=== PATIENT | male | born 1990 | race Hispanic/Latino ===

== ENCOUNTER 2022-08-20 18:45 | Emergency (ER) | payer OTHER ==
[~2022-08-20] VITALS: Ht 170.2 cm; Wt 75.7 kg
[2022-08-20 19:15] VITALS: BP 120/71
[2022-08-20] MEDS ORDERED: ACETAMINOPHEN 500 MG TABLET PO ONE (19:30)
[2022-08-20] MEDS ORDERED: LOPE2CAP PO (19:58)
[2022-08-20] MEDS ORDERED: IBUP-2070 PO (19:58)
[2022-08-20] MEDS ORDERED: IBUPROFEN 600 MG TABLET PO ONE (20:00)
[2022-08-20] MEDS ORDERED: LOPERAMIDE HCL 2 MG CAP PO ONE ×2 (20:00→20:01)
[2022-08-20] MEDS ORDERED: IBUPROFEN 600 MG TABLET ONE (20:02)
== END 2022-08-20 20:17 | disposition home or self-care (01) ==
LOC: EDH 18:45
DX: K52.9 Noninfective gastroenteritis and colitis, unspecified (principal); Z20.822 Contact with and (suspected) exposure to COVID-19
CPT/HCPCS: 99283; 87635; 87804 ×2; C9803

== ENCOUNTER 2024-02-06 13:39 | Emergency (ER) | payer BC, OTHER ==
[~2024-02-06] VITALS: Ht 177.8 cm; Wt 81.6 kg
[~2024-02-06 13:39] MED LIST: IBUP-2070 PO; LOPE2CAP PO
[2024-02-06 14:14] LABS: ADD UA MICROSCOPIC YES; APPEARANCE,URINE CLEAR (CLEAR); BILIRUBIN,URINE NEGATIVE (NEGATIVE); COLOR,URINE COLORLESS (YELLOW); GLUCOSE, URINE (UA) NEGATIVE (NEGATIVE); KETONES,URINE NEGATIVE (NEGATIVE); LEUKOCYTE ESTERASE ,URINE NEGATIVE Leu/uL (NEGATIVE); NITRATE,URINE NEGATIVE (NEGATIVE); OCCULT BLOOD,URINE NEGATIVE (NEGATIVE); PROTEIN,URINE NEGATIVE (NEGATIVE); UROBILINOGEN,URINE 0.2 mg/dL (0.2-1.0)
[2024-02-06 14:18] LABS: RBC,URINE 0-1 /HPF (0-1); WBC,URINE 0-1 /HPF (0-1)
[2024-02-06 14:22] LABS: AMPHET/METH SCREEN,URINE NEGATIVE (NEGATIVE); BARBITURATE SCREEN, URINE NEGATIVE (NEGATIVE); BENZODIAZEPINES SCREEN,URINE NEGATIVE (NEGATIVE); CANNABINOID SCREEN,URINE NEGATIVE (NEGATIVE); COCAINE SCREEN,URINE NEGATIVE (NEGATIVE); OPIATE SCREEN,URINE NEGATIVE (NEGATIVE); PHENCYCLIDINE SCREEN,URINE NEGATIVE (NEGATIVE)
[2024-02-06] MEDS: ONDANSETRON 4MG INJ IVP ONE (14:54)
[2024-02-06] MEDS: KETOROLAC 30MG VIAL (30MG/ML) IVP ONE (14:54)
[2024-02-06] MEDS: 0.9%NACL 1000ML 1,000 ML IV ONE (14:54)
[2024-02-06 15:08] LABS: BASOPHILS # (AUTO) 0.03 K/uL (0.00-0.20); BASOPHILS % (AUTO) 0.2 % (0.0-5.0); EOSINOPHILS # (AUTO) 0.18 K/uL (0.00-0.70); EOSINOPHILS % (AUTO) 1.2 % (0.0-8.0); HEMATOCRIT 43.2 % (42-54); IMMATURE GRANULOCYTE ABSOLUTE 0.09 K/uL (0-1); LYMPHOCYTES # (AUTO) 1.8 K/uL (1.0-4.8); MEAN CORPUSCULAR HEMOGLOBIN 32.1 pg (27.0-33.0); MEAN CORPUSCULAR HGB CONC 35.2 g/dL (32.0-36.0); MEAN CORPUSCULAR VOLUME 91.1 fL (79-99); MONOCYTES # (AUTO) 1.1 K/uL (0.1-1.0); MONOCYTES % (AUTO) 7.1 % (3.0-13.0); NEUTROPHILS # (AUTO) 11.7 K/uL (1.8-7.7); NEUTROPHILS % (AUTO) 78.9 % (40.0-77.0); PLATELET COUNT (AUTO) 262 K/uL (130-400); RED BLOOD CELL COUNT(AUTO) 4.74 MIL/uL (4.50-6.20); RED CELL DISTRIBUTION WIDTH 11.8 % (11.0-15.5); WHITE BLOOD COUNT (AUTO) 14.8 K/uL (4.8-10.8)
[2024-02-06 15:22] LABS: CARBON DIOXIDE 31 mmol/L (21-32); CHLORIDE 99 mmol/L (101-111); CREATININE 1.1 mg/dL (0.5-1.3); GLOMERULAR FILTR. RATE CALC 90 mL/min (>90); GLUCOSE,RANDOM 92 mg/dL (70-105); POTASSIUM 3.4 mmol/L (3.5-5.1); SODIUM SERUM 137 mmol/L (136-145); UREA NITROGEN, BLOOD 6 mg/dL (7-18)
[2024-02-06 15:25] LABS: ALANINE AMINOTRANSFERASE 27 U/L (12-78); ALBUMIN 3.9 g/dL (3.5-5.0); ALCOHOL, BLOOD < 3 mg/dL (0-10); ASPARTATE AMINOTRANSFERASE 23 U/L (10-37); BILIRUBIN,TOTAL 0.4 mg/dL (0.2-1.0); CREATINE KINASE, TOTAL 209 U/L (21-232); TOTAL PROTEIN, SERUM 8.2 g/dL (6.0-8.3)
[2024-02-06 15:35] LABS: COVID19 (SARS ANTIGEN RAPID) PRESUMPTIVE NEGATIVE (NEGATIVE)
[2024-02-06 15:36] LABS: INFLUENZA TYPE A Negative For Type A (NEGATIVE); INFLUENZA TYPE B Negative For Type B (NEGATIVE)
[2024-02-06 16:55] VITALS: BP 121/78; PULSE 78; RESP 18; O2SAT 98
[2024-02-06] MEDS ORDERED: ONDA4TAB10 PO (17:02)
== END 2024-02-06 17:10 | disposition home or self-care (01) ==
LOC: EDH 13:39
DX: R07.81 Pleurodynia (principal); M79.18 Myalgia, other site; R50.9 Fever, unspecified; Z20.822 Contact with and (suspected) exposure to COVID-19
CPT/HCPCS: 99284; 96374; 71045; 96361; 96375; 87426; 82550; 80053; 80305; 83690; 85025; 85378; 87040 ×2; 87880; 87804 ×2; 83605; 81001; 36415; J7030; J2405; J1885

== ENCOUNTER 2024-02-16 13:19 | Emergency (ER) | payer BC ==
[~2024-02-16] VITALS: Ht 177.8 cm; Wt 85.7 kg
[~2024-02-16 13:19] MED LIST changes: +ONDA4TAB10 PO
[2024-02-16 16:18] LABS: APPEARANCE,URINE CLEAR (CLEAR); BILIRUBIN,URINE NEGATIVE (NEGATIVE); COLOR,URINE LIGHT-YELLOW (YELLOW); GLUCOSE, URINE (UA) NEGATIVE (NEGATIVE); KETONES,URINE NEGATIVE (NEGATIVE); LEUKOCYTE ESTERASE ,URINE 250 Leu/uL (NEGATIVE); NITRATE,URINE NEGATIVE (NEGATIVE); OCCULT BLOOD,URINE NEGATIVE (NEGATIVE); PH,URINE 5.5 (5.0-8.0); PROTEIN,URINE NEGATIVE (NEGATIVE); UROBILINOGEN,URINE 0.2 mg/dL (0.2-1.0)
[2024-02-16 16:19] LABS: ADD UA MICROSCOPIC YES
[2024-02-16 16:42] LABS: RBC,URINE 0-1 /HPF (0-1); WBC,URINE 51-100 /HPF (0-1)
[2024-02-16] MEDS ORDERED: CEPH500B PO (17:00)
[2024-02-16 17:18] VITALS: BP 118/70; PULSE 60; RESP 16; O2SAT 99
== END 2024-02-16 17:24 | disposition home or self-care (01) ==
LOC: EDH 13:19
DX: S30.852A Superficial foreign body of penis, initial encounter (principal); N39.0 Urinary tract infection, site not specified; X58.XXXA Exposure to other specified factors, initial encounter; Y93.89 Activity, other specified; Y92.89 Other specified places as the place of occurrence of the external cause; Y99.8 Other external cause status
CPT/HCPCS: 81001; 87088

== ENCOUNTER 2024-05-17 15:47 | Emergency (ER) | payer BC ==
[~2024-05-17] VITALS: Ht 180.3 cm; Wt 89.4 kg
[~2024-05-17 15:47] MED LIST changes: +CEPH500B PO; +ONDA-243 PO; -ONDA4TAB10 PO
[2024-05-17 15:53] VITALS: BP 133/77; PULSE 86; RESP 18
[2024-05-17] MEDS ORDERED: IBUP-2077 PO (17:41)
[2024-05-17] MEDS: IBUPROFEN 800 MG TAB PO ONE (17:59)
== END 2024-05-17 18:21 | disposition home or self-care (01) ==
LOC: EDH 15:47
DX: S93.401A Sprain of unspecified ligament of right ankle, initial encounter (principal); Z79.899 Other long term (current) drug therapy; X50.1XXA Overexertion from prolonged static or awkward postures, initial encounter; Y93.02 Activity, running; Y92.89 Other specified places as the place of occurrence of the external cause; Y99.8 Other external cause status
CPT/HCPCS: 29515; 73610

== ENCOUNTER 2024-09-02 00:13 | Emergency (ER) | payer BC ==
[~2024-09-02] VITALS: Ht 177.8 cm; Wt 77.1 kg
[~2024-09-02 00:13] MED LIST changes: +IBUP-2077 PO
[2024-09-02 00:15] VITALS: TEMP 99.1
--- NOTE | 2024-09-02 00:28 | EKG ---
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
[2024-09-02 00:47] LABS: APPEARANCE,URINE CLEAR (CLEAR); BILIRUBIN,URINE NEGATIVE (NEGATIVE); COLOR,URINE YELLOW (YELLOW); GLUCOSE, URINE (UA) NEGATIVE (NEGATIVE); KETONES,URINE NEGATIVE (NEGATIVE); LEUKOCYTE ESTERASE ,URINE NEGATIVE Leu/uL (NEGATIVE); NITRATE,URINE NEGATIVE (NEGATIVE); OCCULT BLOOD,URINE NEGATIVE (NEGATIVE); PROTEIN,URINE NEGATIVE (NEGATIVE); UROBILINOGEN,URINE 0.2 mg/dL (0.2-1.0)
[2024-09-02 00:48] LABS: ADD UA MICROSCOPIC NO
[2024-09-02 00:52] LABS: POTASSIUM 3.6 mmol/L (3.5-5.1)
[2024-09-02 00:55] LABS: AMPHET/METH SCREEN,URINE NEGATIVE (NEGATIVE); BARBITURATE SCREEN, URINE NEGATIVE (NEGATIVE); BENZODIAZEPINES SCREEN,URINE NEGATIVE (NEGATIVE); CANNABINOID SCREEN,URINE NEGATIVE (NEGATIVE); COCAINE SCREEN,URINE NEGATIVE (NEGATIVE); OPIATE SCREEN,URINE NEGATIVE (NEGATIVE); PHENCYCLIDINE SCREEN,URINE NEGATIVE (NEGATIVE)
[2024-09-02 01:21] LABS: BASOPHILS # (AUTO) 0.01 K/uL (0.00-0.20); BASOPHILS % (AUTO) 0.1 % (0.0-5.0); EOSINOPHILS # (AUTO) 0.22 K/uL (0.00-0.70); EOSINOPHILS % (AUTO) 3.2 % (0.0-8.0); HEMATOCRIT 41.5 % (42-54); IMMATURE GRANULOCYTE ABSOLUTE 0.05 K/uL (0-1); LYMPHOCYTES # (AUTO) 1.3 K/uL (1.0-4.8); LYMPHOCYTES % (AUTO) 19.4 % (21.0-51.0); MEAN CORPUSCULAR HEMOGLOBIN 31.8 pg (27.0-33.0); MEAN CORPUSCULAR HGB CONC 35.4 g/dL (32.0-36.0); MEAN CORPUSCULAR VOLUME 89.8 fL (79-99); MONOCYTES # (AUTO) 0.5 K/uL (0.1-1.0); MONOCYTES % (AUTO) 6.6 % (3.0-13.0); NEUTROPHILS # (AUTO) 4.7 K/uL (1.8-7.7); PLATELET COUNT (AUTO) 272 K/uL (130-400); RED BLOOD CELL COUNT(AUTO) 4.62 MIL/uL (4.50-6.20); RED CELL DISTRIBUTION WIDTH 11.9 % (11.0-15.5); WHITE BLOOD COUNT (AUTO) 6.8 K/uL (4.8-10.8)
--- NOTE | 2024-09-02 02:16 | ERN ---
General Chief Complaint: Chest Pain Stated Complaint: EPIGASTRIC PAIN, HEADACHE ONSET MIDNIGHT WEDNESDAY Time Seen by MD: 00:14 Time Seen by Midlevel: 00:14 Source: patient, EMS History of Present Illness Initial Comments Patient is a 34-year-old male with no significant past medical history presenting for evaluation of midepigastric pain that radiates up to his chest. Patient states the pain has been intermittent in nature since yesterday. He does report being under a lot of stress recently and believes he is having anxiety attacks but just wanted to make sure so he decided to report to the ER for further evaluation. On arrival he denies any shortness of breath, nausea, vomiting, left arm pain, or any other symptoms at this time. Allergies: Coded Allergies: No Known Drug Allergies (Unverified Allergy, Unknown, 08/20/22) Home Meds Active Scripts Ibuprofen (Ibuprofen 800 mg Tab) 800 Mg Tab, 800 MG PO Q8H PRN for fever or pain, #30 TAB 0 Refills Prov:MIIM GAN [employer] 05/17/24 Cephalexin Monohydrate (Keflex) 500 Mg Cap, 500 MG PO TID for 7 Days, #21 CAP Prov:LEON WADE V HEEL NAIL RASPER 02/16/24 Ondansetron (Ondansetron Odt) 4 Mg Tab.rapdis, 4 MG PO Q6HPRN PRN for nausea, #8 TAB 0 Refills Prov:KEVYN LONDON MD 02/06/24 Ibuprofen (Ibuprofen) 600 Mg Tablet, 600 MG PO Q6H PRN for PAIN, #30 TAB Prov:MAXIMO BEARD MD 08/20/22 Loperamide HCl (Loperamide) 2 Mg Capsule, 2 MG PO QID for loose stool, #30 CAP Prov:MAXIMO BEARD MD 08/20/22 Past Medical History Past Medical History: No Pertinent History Medical History Other: LT TOOTH INFECTION Past Surgical History: Appendectomy Social History Social History: Negative, Lives with family ROS Dictation CONSTITUTIONAL: Negative except for HPI HEAD/FACE: Negative except for HPI EENT: Negative except for HPI RESPIRATORY: Negative except for HPI GASTROINTESTINAL/ABDOMINAL: Negative except for HPI GENITOURINARY: Negative except for HPI MUSCULOSKELETAL: Negative except for HPI INTEGUMENTARY: Negative except for HPI NEUROLOGICAL/PSYCH: Negative except for HPI HEMATOLOGIC/LYMPHATIC: Negative except for HPI All Systems Negative, Except as noted above. 13 point review of systems assessed and all negative except for above. Physical Exam Physical Exam Dictation Vital Signs reviewed General Appearance: Alert, oriented x 3, no acute distress, well developed, nourished. Head and Face: non-traumatic. Eyes: PERRL, pink conjunctivas, eyelid no trauma, anterior chamber with arcus senilis. Ears: Pinnas intact and no signs of trauma or erythema ear canals clear and no discharge TM no erythema Nose: No discharge, no bleeding. Oropharynx: Mouth normal, tongue pink, pharynx clear,no erythema, tonsils no exudates, no abscesses noted, mucous membrane moist Neck: Supple, non-tender, no thyromegaly, no masses, no JVD, no bruits Breast:Deferred Chest:No tenderness, no crepitus, no paradoxical movement, no retractions Lungs:Clear, well-ventilated, symmetric, no rales, no wheezing, no rhonchi, no stridor, good breath sounds bilaterally Heart: Regular rate, regular rhythm, no murmur, no gallops Vascular: no peripheral edema, Abdomen: Soft, positive bowel sounds, nondistended, no guarding, nontender, no rebound, no masses no hepatomegaly, no splenomegaly, no Foote's sign, no hernias. Rectal: Deferred Genital: Deferred Neurological: Normal speech, motor function intact, sensory function intact Musculoskeletal: Neck nontender, full range of motion, back nontender, full range of motion, Extremities: nontender, full range of motion Skin: Color pink, dry, no turgor, no rash, no lacerations, no abrasions, no contusions. Lymphatic: Deferred Results Laboratory and Microbiology Lab and Micro Result Laboratory Tests Test 09/02/24 00:23 09/02/24 00:32 09/02/24 01:33 Urine Color YELLOW (YELLOW) Urine Appearance CLEAR (CLEAR) Urine pH 6.0 (5.0-8.0) Urine Specific [place] 1.007 (1.001-1.031) Urine Protein NEGATIVE mg/dL (NEGATIVE) Urine Glucose (UA) NEGATIVE mg/dL (NEGATIVE) Urine Ketones NEGATIVE mg/dL (NEGATIVE) Urine Occult Blood NEGATIVE (NEGATIVE) Urine Nitrate NEGATIVE (NEGATIVE) Urine Bilirubin NEGATIVE mg/dL (NEGATIVE) Urine Urobilinogen 0.2 mg/dL (0.2-1.0) Urine Leukocyte Esterase NEGATIVE Brandy/uL Urine Opiates Screen NEGATIVE (NEGATIVE) Urine Barbiturates Screen NEGATIVE (NEGATIVE) Urine Phencyclidine Screen NEGATIVE (NEGATIVE) Urine Amphetamines Screen NEGATIVE (NEGATIVE) Urine Benzodiazepines Screen NEGATIVE (NEGATIVE) Urine Cocaine Screen NEGATIVE (NEGATIVE) Urine Marijuana (THC) Screen NEGATIVE (NEGATIVE) White Blood Count 6.8 K/uL (4.8-10.8) Red Blood Count 4.62 MIL/uL (4.50-6.20) Hemoglobin 14.7 g/dL (14.0-18.0) Hematocrit 41.5 % (42-54) L Mean Corpuscular Volume 89.8 fL (79-99) Mean Corpuscular Hemoglobin 31.8 pg (27.0-33.0) Mean Corpuscular Hemoglobin Concent 35.4 g/dL (32.0-36.0) Red Cell Distribution Width 11.9 % (11.0-15.5) Platelet Count 272 K/uL (130-400) Mean Platelet Volume 10.8 fL (7.5-10.5) H Immature Granulocyte % (Auto) 0.7 % (0-1) Neutrophils (%) (Auto) 70.0 % (40.0-77.0) Lymphocytes (%) (Auto) 19.4 % (21.0-51.0) L Monocytes (%) (Auto) 6.6 % (3.0-13.0) Eosinophils (%) (Auto) 3.2 % (0.0-8.0) Basophils (%) (Auto) 0.1 % (0.0-5.0) Neutrophils # (Auto) 4.7 K/uL (1.8-7.7) Lymphocytes # (Auto) 1.3 K/uL (1.0-4.8) Monocytes # (Auto) 0.5 K/uL (0.1-1.0) Eosinophils # (Auto) 0.22 K/uL (0.00-0.70) Basophils # (Auto) 0.01 K/uL (0.00-0.20) Absolute Immature Granulocyte (auto 0.05 K/uL (0-1) Nucleated Red Blood Cells 0.0 % (0.0-0.19) Sodium Level 136 mmol/L (136-145) Potassium Level 3.6 mmol/L (3.5-5.1) Chloride Level 103 mmol/L (101-111) Carbon Dioxide Level 27 mmol/L (21-32) Blood Urea Nitrogen 9 mg/dL (7-18) Creatinine 1.0 mg/dL (0.5-1.3) Glomerular Filtration Rate Calc 101 mL/min (>90) Random Glucose 111 mg/dL (70-105) H Total Calcium 8.6 mg/dL (8.5-10.1) Total Creatine Kinase 299 U/L (21-232) #H Troponin I High Sensitivity 31 ng/L (4-75) 30 ng/L (4-75) Labs Reviewed?: Yes MDM MDM: Patient is a 34-year-old male with no significant past medical history presenting for evaluation of midepigastric pain that radiates up to his chest. Patient states the pain has been intermittent in nature since yesterday. He does report being under a lot of stress recently and believes he is having anxiety attacks but just wanted to make sure so he decided to report to the ER for further evaluation. On arrival he denies any shortness of breath, nausea, vomiting, left arm pain, or any other symptoms at this time. On physical examination patient is in no acute distress. Initial vital signs are stable. His CBC and chemistries unremarkable. His cardiac enzymes are negative. His EKG does not show any ST elevations or signs of an acute PA. His initial troponin was negative. Repeat troponin was also negative. On repeat evaluation patient continues to emphasize the amount of stress he was at home. He states he recently lost his grandmother who was like a mom to him and has been having a lot of problems at home. He attributes his symptoms to this. On re-evaluation he does state his chest pain has completely resolved and would like to go home to rest. Patient is stable for discharge. Patient was advised to follow up with primary care doctor in 2-3 days for repeat evaluation. Patient is agreeable with this plan and all questions have been answered. Differential diagnosis: Acute coronary syndrome, dehydration, rhabdomyolysis, There are no social concerns with this patient. Prescription drug management Prescriptions will include: None Medical management and examination interpretation discussions were had by me with other qualified healthcare professionals as indicated for the patient's care. ED Course Orders Procedure Category Date Status Time 12 Lead Ekg Tracing- EKG 09/02/24 Complete Technical 00:15 Cbc With Differential LAB 09/02/24 Complete 00:15 Basic Metabolic Panel LAB 09/02/24 Complete 00:15 Creatine Kinase, Total LAB 09/02/24 Complete 00:15 Troponin I High LAB 09/02/24 Complete Sensitivity 00:15 Urinalysis Profile LAB 09/02/24 Complete 00:15 Drug Screen Urine LAB 09/02/24 Complete 00:15 Chest 1vw RAD 09/02/24 Taken 00:15 Troponin I High LAB 09/02/24 Complete Sensitivity 01:31 Vital Signs Date Time Temp Pulse Resp B/P (MAP) Pulse Ox O2 Delivery O2 Flow Rate FiO2 09/02/24 02:20 64 16 118/80 97 Room Air* 0 21 09/02/24 01:24 70 16 119/70 97 Room Air* 0 21 09/02/24 00:15 99.1 92 16 140/80 96 Room Air 0 09/02/24 00:14 99.1 92 16 140/80 96 Room Air* 0 21 HEART Score Response (Comments) Value History: Low suspicion (0) 0 EKG: Normal 0 Age: < 45yrs (0) 0 Risk Factors: No known risk factors (0) 0 Initial Troponin: Normal limit (0) 0 HEART Score Risk: Low Risk for MACE (1-3) Total 0 DX & DISP Disposition: Discharge Departure Impression: Primary Impression: Non-cardiac chest pain Condition: Stable Additional Instructions: Your blood work today is unremarkable. Your cardiac enzymes are negative. Your EKG does not show any evidence of a heart attack. Please follow up with your primary care doctor in 2-3 days for repeat evaluation. Return to the ER for any new or worsening symptoms Referrals: SELF,REFERRAL (PCP) Time of Disposition: 02:16 I have reviewed the case, and I agree with, Diagnosis and Plan I performed the substantive portion of the visit. I have reviewed and personally made and approve the management plan that is documented in the note by myself or the EDE. I acknowledge for responsibility for the patient's management plan. ALIZA FREGOSO Sep 02, 2024 02:16 KARIS MCCORMICK DO Sep 02, 2024 02:40
[2024-09-02 02:20] VITALS: BP 118/80; PULSE 64; RESP 16; O2SAT 97
--- NOTE | 2024-09-02 08:21 | HMCIMG ---
PORTABLE CHEST RADIOGRAPH INDICATION: CP COMPARISON: 02/06/2024 FINDINGS: diving supervisor leads overlie the field of view. Heart size is normal. The pulmonary vascularity and nelda appear normal. No abnormal pulmonary parenchymal opacity or consolidation identified. No significant pleural effusion noted. No pneumothorax detected. IMPRESSION: No radiographic evidence for any acute cardiopulmonary process.
== END 2024-09-02 02:31 | disposition home or self-care (01) ==
LOC: EDH 00:13
DX: R07.89 Other chest pain (principal); Z90.49 Acquired absence of other specified parts of digestive tract; Z79.899 Other long term (current) drug therapy
CPT/HCPCS: 36415; 71045; 80048; 80305; 81003; 82550; 84484; 85025; 93005